=== PATIENT | female | born 1985 | race American Indian/Alaskan Native ===

== ENCOUNTER 2016-05-28 21:35 | Outpatient (CLI) | payer MEDICAID ==
[2016-05-28] MEDS ORDERED: LACTATED RINGERS 500 ML IV ONE (22:30)
[2016-05-28 22:44] LABS: Bilirubin,Urine NEG (Negative); Blood,Urine NEG (Negative); Ketones,Urine NEG (Negative); Leukocyte Esterase,Urine NEG (Negative); Mucus,Urine FEW /HPF; Nitrite,Urine NEG (Negative); Protein,Urine <15 mg/dL mg/dL (Negative); Urobilinogen,Urine < 2.0 mg/dL (<2.0)
[2016-05-28 23:51] VITALS: BP 120/72
[2016-05-29] MEDS ORDERED: PROCARDIA*For Tocolysis only PO ONE (01:03)
[2016-05-29] MEDS ORDERED: STADOL IV ONE (02:01)
== END 2016-05-29 05:26 | disposition home or self-care (01) ==
LOC: TRG 21:35
PROVIDERS: ATTEND Obstetrics & Gynecology
DX: O26.893 Other specified pregnancy related conditions, third trimester (principal); O62.0 Primary inadequate contractions; O42.92 Full-term premature rupture of membranes, unspecified as to length of time between rupture and onset of labor; M54.9 Dorsalgia, unspecified; Z3A.34 34 weeks gestation of pregnancy
CPT/HCPCS: 81001; 96360; 96374; J0595; J7120